=== PATIENT | female | born 1995 | race African-American/Black ===

== ENCOUNTER 2016-11-22 15:09 | Emergency (ER) | payer BC ==
[2016-11-22 15:32] VITALS: BP 112/65
--- NOTE | 2016-11-22 15:50 | UC ---
Complaint Female HPI - HPI Summary HPI Summary: Patient has been having lots of vaginal bleeding. she is followed by her TEST DRILLER and is scheduled for a D&C at the end of December. she was given iron supplements but does not take them do to her hx of hemmorroids. she states she is going through 6-7 pads a day. does admit to unprotected sex in the past month - History Of Current Complaint Chief Complaint: UCAbdominalPain Stated Complaint: VAGINAL BLEEDING AND ABDOMINAL PAIN Time Seen by Provider: 11/22/16 15:28 Hx Obtained From: Patient Hx Last Menstrual Period: bleeding for 4 months Onset/Duration: Sudden Onset, Lasting Weeks Timing: Constant Severity Initially: Moderate Severity Currently: Moderate Pain Scale Used: 0-10 Numeric Character: Cramping Aggravating Factor(s): Nothing Alleviating Factor(s): Nothing Associated Signs And Symptoms: Positive: Vaginal Bleeding/Discharge - Risk Factors Ectopic Risk Factor: Negative Ovarian Torsion Risk Factor: Negative - Allergies/Home Medications Allergies/Adverse Reactions: Allergies Allergy/AdvReac Type Severity Reaction Status Date / Time No Known Allergies Allergy Verified 11/22/16 15:32 PMH/Surg Hx/FS Hx/Imm Hx Previously Healthy: Yes Endocrine History Of: Denies: Diabetes, Thyroid Disease Cardiovascular History Of: Denies: Cardiac Disorders, Hypertension Respiratory History Of: Reports: Asthma Denies: COPD GI/ History Of: Denies: Ulcer - Surgical History Surgical History: Yes Surgery Procedure, Year, and Place: APPENDECTOMY, 10/18 - Family History Known Family History: Negative: Diabetes - Social History Alcohol Use: Occasionally Substance Use Type: None Smoking Status (MU): Never Smoked Tobacco Household Exposure Type: Cigarettes - Immunization History Most Recent Influenza Vaccination: fall 2012 Review of Systems Constitutional: Negative Skin: Negative Eyes: Negative ENT: Negative Respiratory: Negative Cardiovascular: Negative Gastrointestinal: Other - vaginal bleeding Genitourinary: Negative Motor: Negative Neurovascular: Negative Musculoskeletal: Negative Neurological: Negative Psychological: Negative All Other Systems Reviewed And Are Negative: Yes Physical Exam Triage Information Reviewed: Yes Appearance: Well-Appearing, Well-Nourished, Pain Distress Vital Signs: Initial Vital Signs Temp 98.3 F 11/22/16 15:26 Pulse 93 11/22/16 15:26 Resp 20 11/22/16 15:26 BP 112/65 11/22/16 15:26 Pulse Ox 99 11/22/16 15:26 Vital Signs Reviewed: Yes Eye Exam: Normal ENT Exam: Normal ENT: Positive: Normal ENT inspection, Pharynx normal, TMs normal Dental Exam: Normal Neck exam: Normal Respiratory Exam: Normal Respiratory: Positive: Chest non-tender, Lungs clear, Normal breath sounds Cardiovascular Exam: Normal Cardiovascular: Positive: RRR, No Murmur, Pulses Normal Abdominal Exam: Normal Abdomen Description: Positive: No Organomegaly, Soft, Other: - distended lower abdomen, mild tenderness Bowel Sounds: Positive: Present Musculoskeletal Exam: Normal Neurological Exam: Normal Psychological Exam: Normal Psychological: Positive: Normal Response To Family Skin Exam: Normal Complaint Female Dx - Course Course Of Treatment: Hx obtained, exam performed, meds reviewed, UA and test performed, everything negative. Recommend follow up with OB to set up earlier appointment for D and C. Ibuprofen prescribed. Educated patient on Iron righ foods as she is reluctant to take her iron supplemtents. - Differential Dx/Diagnosis Provider Diagnoses: vaginal bleeding. fatique. lower abdominal pain Discharge - Discharge Plan Condition: Stable Disposition: HOME Patient Education Materials: Dysfunctional Uterine Bleeding (ED) Additional Instructions: I recommend follow up with your OB to reschedule your D and C if possible or to reassess your bleeding since it is interfering with your daily life. Since you do not want to take your iron supplements. I recommend increasing your iron intake in foods. I have prescribed some higher dosed Ibuprofne for pain and cramping.
== END 2016-11-22 16:38 | disposition home or self-care (01) ==
LOC: UCEAST 15:09
DX: N93.9 Abnormal uterine and vaginal bleeding, unspecified (principal); R53.83 Other fatigue; R10.30 Lower abdominal pain, unspecified; Z32.02 Encounter for pregnancy test, result negative; Z77.22 Contact with and (suspected) exposure to environmental tobacco smoke (acute) (chronic)
CPT/HCPCS: 81003; 84702; 99212; G0463

== ENCOUNTER 2017-05-01 15:24 | Emergency (ER) | payer SELFPAY ==
[2017-05-01 15:35] VITALS: BP 122/72
--- NOTE | 2017-05-01 15:59 | UC ---
UC Dental HPI - HPI Summary HPI Summary: left posterior upper and lower dental pain with swelling worsening over 24 hours - History of Current Complaint Hx Obtained From: Patient Hx Last Menstrual Period: February 03 ?: No Onset/Duration: Sudden Onset, Lasting Days, Still Present Severity: Severe Pain Intensity: 8 Pain Scale Used: 0-10 Numeric Related History: Previous Dental Care on Same Tooth, Swelling <Shasha Magallon - Last Filed: 05/01/17 17:10> <Crissy Ball - Last Filed: 05/01/17 18:59> - History of Current Complaint Chief Complaint: UCGeneralIllness Stated Complaint: TEETH,JAW,HEAD PAIN Time Seen by Provider: 05/01/17 15:31 - Allergies/Home Medications Allergies/Adverse Reactions: Allergies Allergy/AdvReac Type Severity Reaction Status Date / Time No Known Allergies Allergy Verified 11/22/16 15:32 Home Medications: Home Medications Acetaminophen [Tylenol] 325 mg PO 05/01/17 [History] Ibuprofen TAB* [Motrin TAB* 600 MG] 800 mg PO Q6H PRN 05/01/17 [History Confirmed 05/01/17] PMH/Surg Hx/FS Hx/Imm Hx Previously Healthy: Yes - Surgical History Surgical History: Yes Surgery Procedure, Year, and Place: APPENDECTOMY, 10/18 - Family History Known Family History: Negative: Diabetes - Social History Occupation: Employed Full-time Lives: With Family Alcohol Use: Occasionally Substance Use Type: None Smoking Status (MU): Never Smoked Tobacco - Immunization History Most Recent Influenza Vaccination: fall 2012 <Shasha Magallon - Last Filed: 05/01/17 17:10> Review of Systems Constitutional: Negative Skin: Negative Eyes: Negative ENT: Negative, Dental Pain - left upper and lower molar pain with swelling Respiratory: Negative Cardiovascular: Negative Gastrointestinal: Negative Genitourinary: Negative Motor: Negative Neurovascular: Negative Musculoskeletal: Negative Neurological: Negative Psychological: Negative All Other Systems Reviewed And Are Negative: Yes <Shasha Magallon - Last Filed: 05/01/17 17:10> Physical Exam Triage Information Reviewed: Yes Appearance: Well-Appearing, No Pain Distress, Well-Nourished Vital Signs: Initial Vital Signs Temp 98.6 F 05/01/17 15:28 Pulse 65 05/01/17 15:28 Resp 14 05/01/17 15:28 BP 122/72 05/01/17 15:28 Pulse Ox 100 05/01/17 15:28 Vital Signs Reviewed: Yes Eye Exam: Normal Eyes: Positive: Conjunctiva Clear ENT Exam: Normal ENT: Positive: Normal ENT inspection, Hearing grossly normal, Pharynx normal. Negative: Nasal congestion, Nasal drainage, Trismus, Muffled/hoarse voice Dental Exam: Normal Dental: Positive: Percussion Tenderness @ - molar left upper and lower jaw, Abscess @. Negative: Gross Decay/Caries @, Dental Fracture @ Neck exam: Normal Neck: Positive: Supple, Nontender, No Lymphadenopathy Respiratory Exam: Normal Respiratory: Positive: Chest non-tender, No respiratory distress, No accessory muscle use Cardiovascular Exam: Normal Cardiovascular: Positive: RRR, Pulses Normal, Brisk Capillary Refill Musculoskeletal Exam: Normal Musculoskeletal: Positive: Strength Intact, ROM Intact, No Edema Neurological Exam: Normal Neurological: Positive: Alert, Muscle Tone Normal Psychological Exam: Normal Psychological: Positive: Normal Response To Family Skin Exam: Normal <Shasha Magallon - Last Filed: 05/01/17 17:10> Vital Signs: Initial Vital Signs Temp 98.6 F 05/01/17 15:28 Pulse 65 05/01/17 15:28 Resp 14 05/01/17 15:28 BP 122/72 05/01/17 15:28 Pulse Ox 100 05/01/17 15:28 <Crissy Ball - Last Filed: 05/01/17 18:59> Dental Complaint Course/Dx - Course Course Of Treatment: amoxicillin, pain med, follow with dentist shahrzad - Differential Dx/Diagnosis Differential Diagnosis/Dx: Dental Abscess, Dental Caries, Peritonsillar Abcess Provider Diagnoses: Dental abscess with pain <Shasha Magallon - Last Filed: 05/01/17 17:10> Discharge <Shasha Magallon - Last Filed: 05/01/17 17:10> <Crissy Ball - Last Filed: 05/01/17 18:59> - Discharge Plan Condition: Stable Disposition: HOME Prescriptions: Amoxicillin PO (*) [Amoxicillin 500 MG CAP*] 500 mg PO TID #30 cap Hydrocodone-Acetaminophen [Hydrocodone/Acetaminophen 5-325 mg] 1 tab PO Q6H #10 tab MDD 4 Patient Education Materials: Dental Abscess (ED), Toothache (ED) Forms: *Work Release Referrals: Archana Varma MD [Primary Care Provider] - 3 Days Attestation Statement User Type: Provider - I was available for consult. This patient was seen by the K[facility]. The patient was not presented to, seen by, or examined by me. -Silvio <Crissy Ball - Last Filed: 05/01/17 18:59>
[2017-05-01] MEDS ORDERED: Ketorolac INJ* 60 MG/2 ML VIAL IM ONE (16:12)
== END 2017-05-01 16:35 | disposition home or self-care (01) ==
LOC: UCEAST 15:24
DX: K04.7 Periapical abscess without sinus (principal); K08.89 Other specified disorders of teeth and supporting structures
CPT/HCPCS: 84702; 96372; 99211; G0463; J1885

== ENCOUNTER 2017-09-23 03:02 | Emergency (ER) | payer BC ==
[2017-09-23] MEDS ORDERED: Ketorolac INJ* 60 MG/2 ML VIAL IM ONE (03:19)
[2017-09-23] MEDS ORDERED: oxyCODONE/Acetamin 5/325 MG* TAB PO ONE (03:19)
--- NOTE | 2017-09-23 04:06 | ED ---
Jimbo Aranda Stephanie, scribed for Calvin Corona MD on 09/23/17 at 0332 . Complex/Multi-Sys Presentation - HPI Summary HPI Summary: The pt is a 22 y/o F presenting to the ED with dental pain that began 1 week ago. The pain is located on the left bottom molar. The pt denies fever. She was prescribed abx at [facility] and was instructed to take 800 mg tablets of ibuprofen. - History Of Current Complaint Chief Complaint: EDDentalPain Time Seen by Provider: 09/23/17 03:08 Hx Obtained From: Patient Onset/Duration: Lasting Weeks - 1, Still Present Timing: Constant Location: Pain At: - left lower molar - Allergies/Home Medications Allergies/Adverse Reactions: Allergies Allergy/AdvReac Type Severity Reaction Status Date / Time No Known Allergies Allergy Verified 07/09/17 13:22 PMH/Surg Hx/FS Hx/Imm Hx Endocrine/Hematology History: Denies: Hx Diabetes, Hx Thyroid Disease Cardiovascular History: Denies: Hx Hypertension Respiratory History: Reports: Hx Asthma Denies: Hx Chronic Obstructive Pulmonary Disease (COPD) GI History: Denies: Hx Ulcer - Surgical History Surgery Procedure, Year, and Place: APPENDECTOMY, 10/18 - Immunization History Date of Tetanus Vaccine: up to date per pt Infectious Disease History: No Infectious Disease History: Denies: Hx Hepatitis, Hx Human Immunodeficiency Virus (HIV), History Other Infectious Disease, Traveled Outside the [place] in Last 30 Days - Family History Known Family History: Negative: Diabetes - Social History Occupation: Employed Part-time Lives: With Family Alcohol Use: Occasionally Substance Use Type: Reports: None Smoking Status (MU): Never Smoked Tobacco Review of Systems Negative: Fever Positive: Dental Pain All Other Systems Reviewed And Are Negative: Yes Physical Exam - Summary Physical Exam Summary: VITAL SIGNS: Reviewed. GENERAL: Patient is a well-developed and nourished FEMALE who is lying comfortable in the stretcher. Patient is not in any acute respiratory distress. HEAD AND FACE: No signs of trauma. No ecchymosis, hematomas or skull depressions. No sinus tenderness. EYES: PERRLA, EOMI x 2, No injected conjunctiva, no nystagmus. EARS: Hearing grossly intact. Ear canals and tympanic membranes are within normal limits. MOUTH: Oropharynx within normal limits. Tenderness over last molar on L lower side of mouth. No sign of gingivitis NECK: Supple, trachea is midline, no adenopathy, no JVD, no carotid bruit, no c- spine tenderness, neck with full ROM. CHEST: Symmetric, no tenderness at palpation LUNGS: Clear to auscultation bilaterally. No wheezing or crackles. CVS: Regular rate and rhythm, S1 and S2 present, no murmurs or gallops appreciated. ABDOMEN: Soft, non-tender. No signs of distention. No rebound no guarding, and no masses palpated. Bowel sounds are normal. EXTREMITIES: FROM in all major joints, no edema, no cyanosis or clubbing. NEURO: Alert and oriented x 3. No acute neurological deficits. Speech is normal and follows commands. SKIN: Dry and warm Triage Information Reviewed: Yes Vital Signs On Initial Exam: Initial Vitals Temp Pulse Resp BP Pulse Ox 98 F 87 14 143/96 97 09/23/17 03:04 09/23/17 03:04 09/23/17 03:04 09/23/17 03:04 09/23/17 03:04 Vital Signs Reviewed: Yes Diagnostics - Vital Signs Vital Signs Temp Pulse Resp BP Pulse Ox 09/23/17 03:04 98 F 87 14 143/96 97 - Laboratory Lab Statement: Any lab studies that have been ordered have been reviewed, and results considered in the medical decision making process. Complex Multi-Symp Course/Dx Course Of Treatment: ED physician prescribed Percocet for pain. Pt will be discharged home. Pt is advised to follow up with dentist. - Diagnoses Provider Diagnoses: Tooth ache Discharge - Discharge Plan Condition: Stable Disposition: HOME Prescriptions: oxyCODONE/Acetamin 5/325 MG* [Percocet 5/325 TAB*] 1 tab PO Q6H PRN #14 tab MDD 4 PRN Reason: Pain Patient Education Materials: Toothache (ED) Referrals: Archana Varma MD [Primary Care Provider] - Additional Instructions: RETURN TO EMERGENCY DEPARTMENT FOR ANY NEW OR WORSENING SYMPTOMS The documentation as recorded by the Jimbo ford Stephanie accurately reflects the service I personally performed and the decisions made by , Calvin Corona MD.
[2017-09-23 04:18] VITALS: BP 136/82
== END 2017-09-23 04:17 | disposition home or self-care (01) ==
LOC: ED 03:02
DX: K08.89 Other specified disorders of teeth and supporting structures (principal); Z87.09 Personal history of other diseases of the respiratory system
CPT/HCPCS: 96372; 99282; A9270-GY; J1885

== ENCOUNTER 2018-07-27 20:09 | Emergency (ER) | payer BC ==
[2018-07-27 20:19] VITALS: BP 131/102
[2018-07-27] MEDS ORDERED: Ondansetron ODT TAB* 4 MG PO ONE ×2 (20:21→22:22)
[2018-07-27] MEDS ORDERED: Ondansetron ODT TAB* 4 MG ONE (20:22)
--- NOTE | 2018-07-27 20:26 | UC ---
Nausea/Vomiting/Diarrhea HPI - HPI Summary HPI Summary: 23 year old woman comes to clinic today with a chief complaint of nausea vomiting. This started last night after drinking alcohol. Initially is no pain. Now there is pain in the upper abdomen with vomiting. The pain subsides when she is not vomiting. Stools were loose. No diarrhea. She's had her appendix out in the past. No fevers. - History of Current Complaint Chief Complaint: UCGI Stated Complaint: VOMITING Time Seen by Provider: 07/27/18 20:14 Hx Last Menstrual Period: [id number] Pain Intensity: 8 - Allergies/Home Medications Allergies/Adverse Reactions: Allergies Allergy/AdvReac Type Severity Reaction Status Date / Time No Known Allergies Allergy Verified 07/27/18 20:19 PMH/Surg Hx/FS Hx/Imm Hx Previously Healthy: Yes - Surgical History Surgical History: Yes Surgery Procedure, Year, and Place: APPENDECTOMY, 10/18 - Family History Known Family History: Negative: Diabetes - Social History Alcohol Use: Occasionally Substance Use Type: None Smoking Status (MU): Never Smoked Tobacco Household Exposure Type: Cigarettes - Immunization History Most Recent Influenza Vaccination: fall 2012 Review of Systems All Other Systems Reviewed And Are Negative: Yes Constitutional: Positive: Negative Skin: Positive: Negative Eyes: Positive: Negative ENT: Positive: Negative Respiratory: Positive: Negative Cardiovascular: Positive: Negative Gastrointestinal: Positive: Abdominal Pain, Vomiting, Nausea Genitourinary: Positive: Negative Motor: Positive: Negative Neurovascular: Positive: Negative Musculoskeletal: Positive: Negative Neurological: Positive: Negative Psychological: Positive: Negative Is Patient Immunocompromised?: No Physical Exam Triage Information Reviewed: Yes Appearance: No Pain Distress, Well-Nourished, Ill-Appearing - mild. Initially actively vomiting in clinic Vital Signs: Initial Vital Signs Temp 97.8 F 07/27/18 20:13 Pulse 89 07/27/18 20:13 Resp 16 07/27/18 20:13 BP 131/102 07/27/18 20:13 Pulse Ox 100 07/27/18 20:13 Vital Signs Reviewed: Yes Eye Exam: Normal Eyes: Positive: Conjunctiva Clear ENT: Positive: Pharynx normal Neck exam: Normal Neck: Positive: Supple Respiratory: Positive: No respiratory distress Cardiovascular: Positive: RRR Abdomen Description: Positive: Nontender, Soft. Negative: Guarding Bowel Sounds: Positive: Present Musculoskeletal Exam: Normal Musculoskeletal: Positive: Strength Intact, ROM Intact Neurological Exam: Normal Neurological: Positive: Alert, Muscle Tone Normal Psychological Exam: Normal Psychological: Positive: Age Appropriate Behavior Skin Exam: Normal Naus/Vom/Diarrhea Course/Dx - Course Course Of Treatment: In the clinic the patient received Zofran 4 mg ODT. She did improve however after trying to eat she did vomit. The plan at this time is to send her home with some more Zofran so that she can rest and advance her diet slowly. If she gets more pain or feels worse she should go to the emergency department. - Differential Dx/Diagnosis Provider Diagnoses: DEHYDRATION. NAUSEA AND VOMITING. ABDOMINAL PAIN Condition At Discharge: Stable Discharge - Sign-Out/Discharge Documenting (check all that apply): Patient Departure All imaging exams completed and their final reports reviewed: No Studies - Discharge Plan Condition: Stable Disposition: HOME Prescriptions: Ondansetron ODT TAB* [Zofran 4 MG Odt TAB*] 4 mg PO Q6H PRN #10 tab.odt PRN Reason: Nausea Patient Education Materials: Dehydration (ED), Acute Nausea and Vomiting (ED), Acute Abdominal Pain (ED) Referrals: Pasha Yu MD [Primary Care Provider] - Additional Instructions: FOLLOW UP WITH YOUR DOCTOR IF NOT COMPLETELY IMPROVED. GET RECHECKED FOR ANY WORSENING OF YOUR CONDITION; PAIN, FEVER, DEHYDRATION OR QUESTIONS OR CONCERNS. - Billing Disposition and Condition Condition: STABLE Disposition: Home
== END 2018-07-27 22:50 | disposition home or self-care (01) ==
LOC: UCEAST 20:09
DX: R11.2 Nausea with vomiting, unspecified (principal); E86.0 Dehydration; R10.10 Upper abdominal pain, unspecified; F10.20 Alcohol dependence, uncomplicated; Z90.89 Acquired absence of other organs
CPT/HCPCS: 99212; A9270-GY; G0463

== ENCOUNTER → 2019-06-10 | Day surgery (SDC) | payer BC ==
[~2019-06-10] MED LIST: Buffered Lidocaine 1% SYRIN* 1 ML/SYRINGE INTRADERM ONE; Bupivacaine 0.25% SDV PF* 10 ML VIAL INJ ONE; Dexamethasone IV* 4 MG/ML 1 ML (4 MG) IV SLOW PU ONE; Dexamethasone IV* 4 MG/ML 1 ML (4 MG) ONE; DiMENhydriNATE IV* 50 MG/ML VIAL IV PUSH PRN; DiMENhydriNATE IV* 50 MG/ML VIAL ONE; Famotidine IV* 10 MG/ML 2 ML (20 mg) IV ONE; Famotidine IV* 10 MG/ML 2 ML (20 mg) ONE; Glycopyrrolate IV* 0.2 MG/ML 1 ML VIAL ONE; HYDROcodone/ACETAMIN 5-325 MG* 1 TAB ONE; Ketorolac INJ* 30 MG/ML 1 ML VIAL ONE; Lactated Ringers 1000 ML Bag* 1,000 ML IV SCH; Levalbuterol 0.63MG/3ML NEB* UNIT OF USE INH ONE; Lidocaine 2% PF * 5 ML VIAL ONE; Midazolam* 1 MG/ML 5 ML VIAL (5 MG) ONE; Naloxone* 0.4 MG/ML 1 ML VIAL IV PRN; Ondansetron INJ* 2 MG/ML VIAL IV PRN; Ondansetron INJ* 2 MG/ML VIAL ONE; Propofol* 10 MG/ML 20 ML BTL ONE; ceFAZolin 2 GM in NS PREMIX(*) 2 GM/100 ML BAG IVPB ONE; fentaNYL* 50 MCG/ML 2 ML VIAL (100 MCG VIAL) ONE; fentaNYL* 50 MCG/ML 5 ML VIAL (250 MCG VIAL) ONE; oxyCODONE/Acetamin 5/325 MG* TAB PO PRN
[2019-06-10] MEDS: fentaNYL* 50 MCG/ML 2 ML VIAL (100 MCG VIAL) IV PRN ×2 (16:35→16:59)
[2019-06-10 19:19] VITALS: BP 118/78
--- NOTE | 2019-06-13 21:22 | OP ---
DATE OF OPERATION: 06/10/19 - [facility] DATE OF : 89 SURGEON: Rio Snyder MD PEELED POTATO INSPECTOR: ELIAS Bañuelos. An primary teaching assistant was needed for the entirety of the procedure to aid in positioning of the arm and retraction. ANESTHESIOLOGIST: Dr. Katz. ANESTHESIA: General. PRE-OP DIAGNOSES: 1. Right wrist dorsal synovitis. 2. Right dorsal wrist ganglion cyst. 3. Right thumb metacarpophalangeal joint radial collateral ligament tear. POST-OP DIAGNOSES: 1. Right wrist dorsal synovitis. 2. Right peripheral triangular fibrocartilage complex tear. 3. Right dorsal wrist ganglion cyst. 4. Right thumb metacarpophalangeal joint radial collateral ligament tear. OPERATIVE PROCEDURE: 1. Diagnostic right wrist arthroscopy with TFCC tear debridement and dorsal synovectomy. 2. Right open peripheral TFCC repair. 3. Right dorsal wrist ganglion cyst excision. 4. Right thumb metacarpophalangeal joint radial collateral ligament repair. INDICATIONS: Sofie is 24 years old. She has dorsal wrist pain. 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 We had talked about her treatment options. She wanted to proceed with surgery. MRI had shown a dorsal wrist ganglion cyst and so I thought we would take that out as well and, in addition, I would do an arthroscopic dorsal debridement to see if we could help with some of the dorsal wrist pain that she gets when she extends the wrist. She understands and wishes to proceed. ESTIMATED BLOOD LOSS: 2 mL. COMPLICATIONS: None. FINDINGS: See above and below. DESCRIPTION OF PROCEDURE: Ms. Jiang was seen in the preoperative holding area. The correct site, side, and procedures were identified. We came back to the operating room where the arm was prepped and draped in the usual fashion and a time- out was performed. The arm was exsanguinated with the Esmarch and the tourniquet was inflated. Her arm was placed in the Acumed traction tower and appropriate in-line traction was placed. I developed a 3-4 and 6R portal in standard fashion utilizing the 11-blade followed by mosquito and then the camera was introduced into the 3-4 portal. I then used an 18-gauge needle to out my 6R portal and that was developed and the instruments were introduced through the 6R portal. Immediately noted was quite a bit of dorsal soft tissue and synovitis. The shaver was used to excise all of that. Once I excised all that, I had a good view of the ulnar-sided structures. She had a peripheral and dorsal tear of the TFCC, looked like it had torn right off the capsule. I went ahead and used the shaver to debride the edges of that. It did look repairable. Other than that, the membranous portion of the scapholunate ligament looked good. There was no step-off between the scaphoid and the lunate. Everything else was looking pretty good and so we went ahead and withdrew the arthroscopic equipment and turned our attention to the next portion of the procedure. The arm was let out of the traction tower. I then incorporated our 6R portal site into a curvilinear incision over the ulnar side of the dorsal wrist joint. Dissection was carried down. Full-thickness flaps were raised off the extensor retinaculum. I came just radial to the ECU tendon sheath and I opened up the joint there, took care to preserve the dorsal radioulnar ligament. Once I had elevated the capsule and I had a good look at the TFCC, I was able to see that peripheral tear. It had torn off the ECU subsheath. We did take some 3-0 FiberWire suture and I was able to place 2 [id number] sutures from the subsheath into the TFCC and that closed down the tear very nicely. The foveal attachment looked intact. After the TFCC was repaired, I went ahead and sewed the capsule back into its anatomic location with 3-0 Ethibond sutures sewing the dorsal capsule to the dorsal TFCC. I closed the extensor retinaculum with 4-0 PDS suture. Skin was then closed with 4-0 Monocryl. I then incorporated the 3-4 portal in a transverse 2-cm incision. Dissection was carried down. The dorsal wrist ganglion emanating off the dorsal aspect of the scapholunate interosseous ligament was identified. It was taken right off the capsule. I then used the Bovie to cauterize the area where it had emanated from the capsule. Great care was taken to protect the fourth and third dorsal compartment tendons during the cyst excision. After that was done, I irrigated out the wound and the skin was also closed with 4-0 Monocryl suture. I then turned my attention to the metacarpophalangeal joint. I made an incision over the radial aspect of the joint. I utilized the interval between the lateral band and the EPL tendon and I was able to gain access to the radial side of the MCP joint. The tear was immediately apparent. It had torn off the origin and the ligament had assumed a much more horizontal position scarring down to the volar aspect of the metacarpal head, but there was really no ligament that had attached up in its grand traverse footprint. I used the [place] blade to release the collateral ligament and released it off the volar tissues where it had scarred down. It actually had preserved reasonable length. I was able to then rotate it back into its more grand traverse position and I thought I had adequate soft tissue and so I went ahead and placed 2 Arthrex micro suture anchors in the footprint of the radial collateral ligament. I then used the FiberWire suture coming off those suture anchors to sew down the ligament right onto the bone and over the anchor. This was done initially with a simple mattress-type suture followed by a whipstitch down the ligament and it was tied off again. This provided excellent ligament to bone apposition. I had prepared the bone with a curette and rongeur, so that would bleed a little bit in preparation for ligament healing. After I had repaired that ligament, I had excellent stability at both 0 and 30 degrees with respect to the radial collateral ligament. With the ligament repaired, I closed my tendon split with a 4-0 PDS suture. Skin was closed with 4-0 nylon. 0.25% Marcaine was infiltrated about all the operative areas. The wounds were dressed and a long-arm splint with a thumb spica extension down to the tip of the thumb was applied protecting that radial collateral ligament. She was then taken to the recovery room in stable condition. [id number]/[facility] #: [id number] ROSEMARY
== END | disposition home or self-care (01) ==
LOC: OR 12:01
PROVIDERS: ATTEND Orthopaedic Surgery Hand Surgery
DX: S63.591D Other specified sprain of right wrist, subsequent encounter (principal); S63.521D Sprain of radiocarpal joint of right wrist, subsequent encounter; M67.431 Ganglion, right wrist; M65.831 Other synovitis and tenosynovitis, right forearm; X58.XXXD Exposure to other specified factors, subsequent encounter; Y92.9 Unspecified place or not applicable; J45.909 Unspecified asthma, uncomplicated
CPT/HCPCS: 81025; 88304; C1713; J0690; J1100; J1240; J1885; J2250; J2405; J2704; J3010; J3490

== ENCOUNTER 2019-09-06 11:54 | Inpatient (IN) | payer BC ==
--- OUTSIDE RECORDS SUMMARY | 2019-09-06 12:18 | XMS REPORT | Continuity of Care Document ---
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 Active Problems Provider Date Late effect of sprain AND/OR strain without Rio Snyder MD Onset: 2018 tendon injury Social History Type Date Description Comments Sex Unknown ETOH Use Rarely consumes alcohol Tobacco Use Start: Unknown Patient has never smoked Smoking Status Reviewed: 07/23/19 Patient has never smoked Exercise Type/Frequency Exercises sporadically Allergies, Adverse Reactions, Alerts Description No Known Drug Allergies Medications Active Medications SIG Qnty Indications Ordering Provider Date Fluoxetine HCL 1 by mouth every Unknown 40mg day Capsules History Medications Hydrocodone-Acetaminophen 1 or 2 tabs 30tabs Rio 06/10/2019 - 5-325mg Tablets by mouth MD Claudio 07/22/2019 every 6-8 hours as needed for pain No Active Medications Unknown 03/12/2019 - 06/04/2019 Immunizations Description No Information Available Vital Signs Date Vital Result Comment 07/23/2019 2:06pm Height 64 inches 5'4" Weight 150.00 lb Heart Rate 72 /min BP Systolic Sitting 122 mmHg BP Diastolic Sitting 76 mmHg Respiratory Rate 14 /min Pain Level 0 O2 % BldC Oximetry 98 % BMI (Body Mass Index) 25.7 kg/m2 07/02/2019 2:25pm Height 64 inches 5'4" Weight 153.00 lb Heart Rate 76 /min Respiratory Rate 14 /min Body Temperature 97.1 F Pain Level 0 BMI (Body Mass Index) 26.3 kg/m2 Results Test Acquired Date Facility Test Result H/L Range Note Laboratory test 06/10/2019 [facility] Surgical SEE RESULT [address] Pathology BELOW [place], [place] [id number] [phone] 1 SEE RESULT BELOW Name: MAMIE FARIAS : [address]: Rio Snyder MD Acct: [id number] Unit: [id number] AGE: 24 Location: OR Re06/10/19 SEX: F Status: REG SDC SPEC: [id number] OBEY: 06/10/19- SUBM DR: Rio Snyder MD REQ: [id number] RECD: 06/10/19 STATUS: SOUT _ ORDERED: LEVEL 3 FINAL DIAGNOSIS Soft tissue, right dorsal wrist, excision: -- Ganglion cyst. PRE-OPERATIVE DIAGNOSIS Sprain of metacarpophalangeal joint of right thumb GROSS DESCRIPTION The specimen is received in formalin labeled, Right Dorsal Wrist Ganglion, and consists of two piper-white irregular rubbery fibrous tissue fragments aggregating 0.9 x 0.7 x 0.3 cm which are submitted entirely in one cassette. Signed by and Reported on: Vidal Caal MD 05/23 1216 END OF REPORT DEPARTMENT OF PATHOLOGY, [address] [place] [address] Vidal Caal M.D. Director [facility] # [id number] Procedures Date Code Description Status 07/23/2019 51729 Long Arm Splint Application Completed 06/12/2019 49913 Long Arm Cast Application Completed 06/10/2019 83919 Repair Of Collateral Ligament Metacarpophalangeal Or Completed Interphl JT 06/10/2019 20009 Excision Ganglion Wrist/ Dorsal Or Volar; Primary Completed 06/10/2019 71221 Arthrotomy Distal Radioulnar JT W/Repair Triangular Completed Cartilage 06/10/2019 41220 Arthrotomy Distal Radioulnar JT W/Repair Triangular Completed Cartilage Medical Devices Description No Information Available Encounters Type Date Location Provider Dx Diagnosis Office Visit 03/27/2019 Krystle Pate S63.641D Sprain of 11:00a Orthopedics at [facility] metacarpophalangeal [place] joint of right thumb, subs M67.431 Ganglion, right wrist S63.591D Other specified sprain of right wrist, subsequent encounter Office Visit 03/12/2019 1:00p [facility] Rio S63.591S Other specified at Madhav Snyder MD sprain of right wrist, sequela S63.641S Sprain of metacarpophalangeal joint of right thumb, sequela M24.241 Disorder of ligament, right hand M25.531 Pain in right wrist Assessments Date Code Description Provider 07/23/2019 S63.641D Sprain of metacarpophalangeal joint of right Rio Snyder MD thumb, subsequent encounter 07/23/2019 M67.431 Ganglion, right wrist Rio Snyder MD 07/23/2019 S63.591D Other specified sprain of right wrist, Rio Snyder MD subsequent encounter 07/02/2019 S63.641D Sprain of metacarpophalangeal joint of right Rio Snyder MD thumb, subsequent encounter 07/02/2019 M67.431 Ganglion, right wrist Rio Snyder MD 07/02/2019 S63.591D Other specified sprain of right wrist, Rio Snyder MD subsequent encounter 06/19/2019 S63.641D Sprain of metacarpophalangeal joint of right Rio Snyder MD thumb, subsequent encounter 06/19/2019 M67.431 Ganglion, right wrist Rio Snyder MD 06/19/2019 S63.591D Other specified sprain of right wrist, Rio Snyder MD subsequent encounter 06/12/2019 S63.641D Sprain of metacarpophalangeal joint of right Rio Snyder MD thumb, subsequent encounter 06/12/2019 M67.431 Ganglion, right wrist Rio Snyder MD 06/12/2019 S63.591D Other specified sprain of right wrist, Rio Snyder MD subsequent encounter 06/10/2019 S63.641A Sprain of metacarpophalangeal joint of right Rio Snyder MD thumb, initial encounter 06/10/2019 S63.641D Sprain of metacarpophalangeal joint of right ELIAS Bañuelos thumb, subsequent encounter 06/10/2019 M67.431 Ganglion, right wrist ELIAS Bañuelos 06/10/2019 S63.591A Other specified sprain of right wrist, initial Brad Bedolla PA encounter 06/10/2019 M67.431 Ganglion, right wrist Rio Snyder MD 06/10/2019 S63.591A Other specified sprain of right wrist, initial Rio Snyder MD encounter 06/04/2019 S63.641D Sprain of metacarpophalangeal joint of right Rio Snyder MD thumb, subsequent encounter 06/04/2019 M67.431 Ganglion, right wrist Rio Snyder MD 06/04/2019 S63.591D Other specified sprain of right wrist, Rio Snyder MD subsequent encounter 03/27/2019 S63.641D Sprain of metacarpophalangeal joint of right Rio Snyder MD thumb, subsequent encounter 03/27/2019 M67.431 Ganglion, right wrist Rio Snyder MD 03/27/2019 S63.591D Other specified sprain of right wrist, Rio Snyder MD subsequent encounter 03/12/2019 S63.591S Other specified sprain of right wrist, sequela Rio Snyder MD 03/12/2019 S63.641S Sprain of metacarpophalangeal joint of right Rio Snyder MD thumb, sequela 03/12/2019 M24.241 Disorder of ligament, right hand Rio Snyder MD 03/12/2019 M25.531 Pain in right wrist Rio Snyder MD Plan of Treatment Future Appointment(s):08/14/2019 10:15 am - Rio nSyder MD at [facility] at Zvxjly0607/23/2019 - Rio Snyder MDS63.641D Sprain of metacarpophalangeal joint of right thumb, subsequent encounterNew Therapy: Physical TherapyFollow up:Follow up: 4 [id number] Ganglion, right eekhyS30.591D Other specified sprain of right wrist, subsequent encounter Functional Status Description No Information Available Mental Status Description No Information Available Referrals Description No Information Available
--- OUTSIDE RECORDS SUMMARY | 2019-09-06 12:18 | XMS REPORT | Continuity of Care Document ---
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 Active Problems Provider Date Late effect of sprain AND/OR strain without Rio Snyder MD Onset: 2018 tendon injury Social History Type Date Description Comments Sex Unknown ETOH Use Rarely consumes alcohol Tobacco Use Start: Unknown Patient has never smoked Smoking Status Reviewed: 08/14/19 Patient has never smoked Exercise Type/Frequency Exercises [...] Available Vital Signs Date Vital Result Comment 08/14/2019 11:17am Height 66 inches 5'6" Weight 150.50 lb Heart Rate 66 /min BP Systolic 126 mmHg BP Diastolic 78 mmHg Respiratory Rate 14 /min Body Temperature 98.1 F Pain Level 0 BMI (Body Mass Index) 24.3 kg/m2 07/23/2019 2:06pm Height 64 inches 5'4" Weight 150.00 lb Heart Rate 72 /min BP Systolic Sitting 122 mmHg BP Diastolic Sitting 76 mmHg Respiratory Rate 14 /min Pain Level 0 O2 % BldC Oximetry 98 % BMI (Body Mass Index) 25.7 kg/m2 Results Test Acquired Date Facility Test Result H/L Range Note Laboratory test 06/10/2019 [facility] Surgical SEE RESULT [address] Pathology BELOW [place], [place] [address] [phone] SEE RESULT BELOW Name: MAMIE FARIAS : [address]: Rio Snyder MD Acct: [id number] Unit: [id number] AGE: 24 Location: OR Re06/10/19 SEX: F Status: REG [facility] SPEC: [id number] OBEY: 06/10/19- SUBM DR: Rio Snyder MD REQ: [id number] RECD: 06/10/19 STATUS: SOUT _ ORDERED: LEVEL [...] 1216 END OF REPORT DEPARTMENT OF PATHOLOGY, [address] [place] [address] Vidal Caal M.D. Director [facility] # [id number] Procedures Date Code Description Status 07/23/2019 15890 Long Arm Splint Application Completed 07/02/2019 17032 Long Arm Cast Application Completed 06/12/2019 43325 Long Arm Cast Application Completed 06/10/2019 26018 Repair Of Collateral Ligament Metacarpophalangeal Or Completed Interphl JT 06/10/2019 95623 Excision Ganglion Wrist/ Dorsal Or Volar; Primary Completed 06/10/2019 22794 Arthrotomy Distal Radioulnar JT W/Repair Triangular Completed Cartilage 06/10/2019 63703 Arthrotomy Distal Radioulnar JT W/Repair Triangular Completed Cartilage Medical Devices Description No Information Available Encounters Type Date Location Provider Dx Diagnosis Office Visit 03/27/2019 Krystle Pate S63.641D Sprain of 11:00a Orthopedics at [facility] metacarpophalangeal [place] joint of right thumb, subs M67.431 Ganglion, right wrist S63.591D Other specified sprain of right wrist, subsequent encounter Office Visit 03/12/2019 1:00p [facility] Rio S63.591S Other specified at Madhav Snyder MD sprain of right wrist, sequela S63.641S Sprain of metacarpophalangeal joint of right thumb, sequela M24.241 Disorder of ligament, right hand M25.531 Pain in right wrist Assessments Date Code Description Provider 08/14/2019 S63.641D Sprain of metacarpophalangeal joint of right Rio Snyder MD thumb, subsequent encounter 08/14/2019 M67.431 Ganglion, right wrist Rio Snyder MD 08/14/2019 S63.591D Other specified sprain of right wrist, Rio Snyder MD subsequent encounter 07/23/2019 S63.641D Sprain of metacarpophalangeal joint of [...] Other specified sprain of right wrist, initial ELIAS Bañuelos encounter 06/10/2019 M67.431 Ganglion, right wrist Rio [...] Rio Snyder MD Plan of Treatment Future Appointment(s):09/17/2019 1:00 pm - Rio Snyder MD at [facility] at Kwjflh0008/14/2019 - TRISHA Rowe63.641D Sprain of metacarpophalangeal joint of right thumb, subsequent encounterFollow up:Follow up: 4 [id number] Ganglion, right egniyQ36.591D Other specified sprain of right wrist, subsequent encounter Functional Status Description No Information Available Mental Status Description No Information Available Referrals Description No Information Available
--- NOTE | 2019-09-06 12:44 | ED ---
Abdominal Pain/Female - HPI Summary HPI Summary: Patient is a 24 y/o F presenting to the ED for a chief complaint of right suprapubic abdominal pain. Patient describes her abdominal pain as a cramping sensation. She rates her abdominal pain as a 7/10 in severity. She also notes fever, chills, nausea, vomiting, fatigue, cough, and generalized body aches. Patient denies vaginal bleeding, vaginal discharge, or diarrhea. She denies any aggravating or alleviating factors. Patient was seen on 09/03/19 and had an ultrasound performed that showed a possible in her uterus. Patient was later seen by Dr. Eaton and sent to [facility] to rule out an ectopic . This would be her 4th confirmed . She has a daughter that was born at 26 weeks. She also notes having one and several miscarriages, but she is unsure how many miscarriages she has had. She denies having an IUD placed. PSHx is significant for appendectomy. - History of Current Complaint Chief Complaint: EDOBProblems Stated Complaint: POSS EPTOPIC PREG PER PT Time Seen by Provider: 09/06/19 12:21 Hx Obtained From: Patient Hx Last Menstrual Period: [id number] Onset/Duration: Sudden Onset, Still Present Timing: Constant Severity Initially: Severe Severity Currently: Severe Pain Intensity: 7 Pain Scale Used: 0-10 Numeric Location: Suprapubic - Right Radiates: No Aggravating Factor(s): Nothing Alleviating Factor(s): Nothing Associated Signs and Symptoms: Positive: Fever, Cough, Nausea, Vomiting. Negative: Vaginal Bleeding, Vaginal Discharge, Diarrhea Allergies/Adverse Reactions: Allergies Allergy/AdvReac Type Severity Reaction Status Date / Time No Known Allergies Allergy Verified 09/06/19 12:12 Home Medications: Home Medications Cholecalciferol (Vitamin D3) [D 400] 400 unit PO DAILY 09/06/19 [History Confirmed 09/06/19] PMH/Surg Hx/FS Hx/Imm Hx Previously Healthy: Yes Endocrine/Hematology History: Denies: Hx Diabetes, Hx Thyroid Disease Cardiovascular History: Denies: Hx Hypertension, Hx Pacemaker/ICD Respiratory History: Reports: Hx Asthma - RESCUE INHLAER Denies: Hx Chronic Obstructive Pulmonary Disease (COPD) GI History: Denies: Hx Ulcer History: Denies: Hx Dialysis, Hx Renal Disease Musculoskeletal History: Reports: Other Musculoskeletal History - RIGHT THUMB AMD WRIST Sensory History: Reports: Hx Contacts or Glasses - GLASSES Denies: Hx Legally Blind, Hx Deafness, Hx Hearing Aid Opthamlomology History: Reports: Hx Contacts or Glasses - GLASSES Denies: Hx Legally Blind EENT History: Denies: Hx Deafness Neurological History: Denies: Other Neuro Impairments/Disorders Psychiatric History: Reports: Hx Depression Denies: Hx Panic Disorder - Surgical History Surgical History: Yes Surgery Procedure, Year, and Place: APPENDECTOMY, 10/18 Hx Anesthesia Reactions: Yes - AFTER APPY WOKE UP AND COULDN'T BREATHE - Immunization History Date of Tetanus Vaccine: up to date per pt Infectious Disease History: No Infectious Disease History: Denies: Hx Hepatitis, Hx Human Immunodeficiency Virus (HIV), History Other Infectious Disease, Traveled Outside the [place] in Last 30 Days - Family History Known Family History: Negative: Diabetes - Social History Occupation: Employed Full-time Lives: With Family Alcohol Use: Occasionally Hx Substance Use: No Substance Use Type: Reports: None Hx Tobacco Use: No Smoking Status (MU): Never Smoked Tobacco Have You Smoked in the Last Year: No Review of Systems Positive: Fever - In vitals, 100.1 F, Chills, Fatigue Positive: Cough Positive: Abdominal Pain - Right suprapubic, Vomiting, Nausea. Negative: Diarrhea Negative: discharge - Vaginal, other - Negative vaginal bleeding Positive: Myalgia - Generalized body aches All Other Systems Reviewed And Are Negative: Yes Physical Exam - Summary Physical Exam Summary: Constitutional: Well-developed, Well-nourished, Alert. (-) Distressed Skin: Warm, Dry HENT: Normocephalic; Atraumatic Eyes: Conjunctiva normal Neck: Musculoskeletal ROM normal neck. (-) JVD, (-) Stridor, (-) Nuchal rigidity Cardio: Rhythm regular, rate normal, Heart sounds normal; Intact distal pulses; Radial pulses are 2+ and symmetric. (-) Murmur Pulmonary/Chest wall: Effort normal. (-) Respiratory distress, (-) Wheezes, (-) Rales Abd: Soft, (-) Distension, (-) Guarding, (-) Rebound. Right lower quadrant tenderness. Musculoskeletal: (-) Edema Lymph: (-) Cervical adenopathy Neuro: Alert, Oriented x3 Psych: Mood and affect Normal : Teena, a female nurse environmental research scientist, is present for the exam. External Exam: normal labia, no masses, lacerations or abnormal lesions visualized Speculum Exam: Cervical os open, scant brown discharge, no blood in vault Bimanual Exam: no CMT, mild R adnexal tenderness Triage Information Reviewed: Yes Vital Signs On Initial Exam: Initial Vitals Temp Pulse Resp BP Pulse Ox 100.1 F 107 18 120/80 100 09/06/19 12:09 09/06/19 12:09 09/06/19 12:09 09/06/19 12:09 09/06/19 12:09 Vital Signs Reviewed: Yes Procedures - Sedation Patient Received Moderate/Deep Sedation with Procedure: No Diagnostics - Vital Signs Vital Signs Temp Pulse Resp BP Pulse Ox 09/06/19 12:09 100.1 F 107 18 120/80 100 - Laboratory Result Diagrams: 09/06/19 12:36 09/06/19 12:36 Lab Statement: Any lab studies that have been ordered have been reviewed, and results considered in the medical decision making process. - Radiology Chest X-ray Radiology Interpretation Completed By: Radiologist Summary of Radiographic Findings: Chest X-ray IMPRESSION: NO EVIDENCE FOR ACTIVE CARDIOPULMONARY DISEASE. Reviewed by Dr. Hein. - CT Abdomen/Pelvis CT CT Interpretation Completed By: Radiologist Summary of CT Findings: Abdomen/Pelvis CT IMPRESSION: 1. The appendix is absent consistent with appendectomy. No inflammatory change in the right lower quadrant. 2. No other acute CT pathology. Reviewed by Dr. Hein. - Ultrasound Transvaginal US Ultrasound Interpretation Completed By: Radiologist Summary of Ultrasound Findings: Transvaginal US IMPRESSION: Prominent periendometrial cysts are noted. No definite evidence of intrauterine is noted. No adnexal masses are noted. Reviewed by Dr. Hein. Re-Evaluation - Re-Evaluation First Eval Re-Evaluation Time: 17:03 Change: Unchanged Comment: At 17:03, patient notes having a headache for 2 days. She denies neck pain. Second Eval Re-Evaluation Time: 19:07 Change: Improved Comment: At 19:07, patient is feeling better and her headache has resolved. Third Eval Re-Evaluation Time: 19:30 Change: Unchanged Comment: At 19:30, I discussed the risks and benefits of a lumbar puncture. Patient declined to have a lumbar puncture performed. Abdominal Pain Fem Course/Dx - Course Course Of Treatment: 24 y/o female with recent positive test p/w RLQ abdominal pain and myalgias. - PE: Takata, mild right lower quadrant TENDERNESS. Pelvic with mild discharged no cervical motion tenderness. Left several versus significantly elevated white count to 29. Chest x-ray without obvious infection, flu negative. Differential includes PID, tubo-ovarian abscess , septic miscarriage, less likely appendicitis given history of appendectomy but could have stump appendicitis, pyelonephritis. US neg, UA neg for infection. Has headache but no neck pain, +myalgias. Lower suspicion meningitis. - CT ab/pelvis obtained which shows no acute process. - d/w patient LP to r/o meningitis, she declines at this time. Advised that the longer she waits, the lower the sensitivity given that she would be on abx. - Diagnoses Provider Diagnoses: Fever, RLQ abdominal pain, Headache - Provider Notifications Discussed Care Of Patient With: Chelsi Kelly - At 14:01, Dr. Kelly reviewed the patients case and recommends the patient follow up after the remaining tests come back. She does not believe the patient has an ectopic . At 19:16, Dr. Lowell Marie reviewed the patients case and agrees to admit the patient to [facility] with a diagnosis of fever, RLQ abdominal pain, and headache. If the patient is willing, a lumbar puncture can be performed. Time Discussed With Above Provider: 14:01 Instructed by Provider To: Admit As Inpatient Discharge ED - Sign-Out/Discharge Documenting (check all that apply): Patient Departure - Admit - Discharge Plan Condition: Stable Disposition: ADMITTED TO [facility] Referrals: Pasha Yu MD [Primary Care Provider] - - Billing Disposition and Condition Condition: STABLE Disposition: Admitted to [facility] - Attestation Statements Document Initiated by Scribe: Yes Documenting Scribe: Olga Lidia Lindsey Provider For Whom Karely is Documenting (Include Credential): Michelle Hein MD Scribe Attestation: Olga Lidia Aranda scribed for Michelle Hein MD on 09/06/19 at 2008. Scribe Documentation Reviewed: Yes Provider Attestation: The documentation as recorded by the Olga Lidia ford accurately reflects the service I personally performed and the decisions made by me, Michelle Hein MD Status of Scribe Document: Viewed
[2019-09-06 12:57] LABS: Hematocrit 37 % (35-47); Hemoglobin 12.2 g/dL (12.0-16.0); Mean Corpuscular HGB Conc 33 g/dL (31-36); Mean Corpuscular Hemoglobin 26 pg (27-31); Mean Corpuscular Volume 79 fL (80-97); Platelet Count 318 10^3/uL (150-450); Red Blood Count 4.68 10^6 /uL (3.70-4.87); Red Cell Distribution Width 13 % (10-15)
[2019-09-06] MEDS ORDERED: NS 0.9% 1000 ML** 1,000 ML IV ONE ×3 (13:06→18:03)
[2019-09-06] MEDS ORDERED: Acetaminophen TAB* 325 MG PO ONE ×2 (13:07→16:24)
[2019-09-06] MEDS ORDERED: Piperacillin/Tazobac ADVAN(*) 3.375 GM in NS 0.9% 100 ML* 100 ML IVPB ONE (13:17)
[2019-09-06 13:18] LABS: Albumin 4.3 g/dL (3.2-5.2); Albumin/Globulin Ratio 1.1 (1-3); BUN/Creatinine Ratio 15.1 (8-20); Calcium 9.5 mg/dL (8.6-10.3); EGFR African American 88.2 (>60); EGFR Non-African American 72.9 (>60); Globulin 3.9 g/dL (2-4); Potassium 4.1 mmol/L (3.5-5.0); Total Bilirubin 0.5 mg/dL (0.2-1.0); Total Protein 8.2 g/dL (6.4-8.9)
[2019-09-06 13:22] LABS: ABS Basophils 0.1 10^3/ul (0-0.2); ABS Lymphocytes 0.9 10^3/ul (1.0-4.8); Lymphocyte % 3.2 %; Nucleated Red Blood Cells % 0.1
[2019-09-06] MEDS ORDERED: Piperacillin/Tazobac (*) 3.375 GM BAG ONE (13:22)
[2019-09-06 13:25] LABS: HCG Pregnancy 23.32 mIU/mL
[2019-09-06] MEDS ORDERED: Vancomycin(*) 1,000 MG in NS 0.9% 250 ML* 250 ML IV ONE (14:00)
[2019-09-06] MEDS ORDERED: Vancomycin(*) 1,000 MG VIAL IVPB SCH (14:00)
[2019-09-06] MEDS ORDERED: Ketorolac INJ* 30 MG/ML 1 ML VIAL IV ONE (14:07)
[2019-09-06] MEDS ORDERED: Ondansetron INJ* 2 MG/ML VIAL IV ONE (14:07)
[2019-09-06] MEDS ORDERED: Ondansetron INJ* 2 MG/ML VIAL ONE (14:09)
[2019-09-06] MEDS ORDERED: Vancomycin(*) 1,250 MG IV x ONCE IVPB ONE ×2 (15:00)
[2019-09-06] MEDS ORDERED: Iohexol 300* (CONTRAST) 10 ML SDV IV ONE (16:20)
[2019-09-06 16:22] LABS: Influenza A Molecular NEGATIVE (Negative); Influenza B Molecular NEGATIVE (Negative)
[2019-09-06] MEDS ORDERED: Morphine 4 MG/ML VIAL (1 ml) 4 MG/ML VIAL IV ONE (16:58)
[2019-09-06] MEDS ORDERED: Ibuprofen TAB* 600 MG PO ONE (17:08)
[2019-09-06 17:40] LABS: Urine Appearance Cloudy; Urine Bilirubin Negative (Negative); Urine Blood Negative (Negative); Urine Color Yellow; Urine Glucose Negative (Negative); Urine Ketones Trace (Negative); Urine Nitrite Negative (Negative); Urine Protein 2+(100 mg/dL) (Negative); Urine Specific Gravity 1.033 (1.010-1.030); Urine Urobilinogen Negative (Negative)
[2019-09-06 17:44] LABS: Urine Bacteria Absent (Absent); Urine Red Blood Cell Trace(0-2/hpf) (Absent); Urine Squamous Epithelial Cell Present (Absent); Urine White Blood Cell Trace(0-5/hpf) (Absent)
[2019-09-06] MEDS ORDERED: Lidocaine 1% INJ* 10 MG/ML 30 ML SDV INJ ONE (19:16)
[2019-09-06 19:26] LABS: INR 1.3 (0.82-1.09)
[2019-09-06] MEDS ORDERED: Morphine INJ* 2 MG/ML 1 ML SYRINGE (TWO MG - NEW SYRINGE VERSION) IV PRN (20:50)
[2019-09-06] MEDS ORDERED: Albuterol HFA INHALER* 8 gm MDI INH PRN (20:54)
[2019-09-06] MEDS ORDERED: Vancomycin per Pharmacy* NOTE FOLLOW UP SCH (21:00)
[2019-09-06] MEDS ORDERED: Zosyn per Pharmacy* NOTE FOLLOW UP SCH (21:00)
[2019-09-06] MEDS ORDERED: ZOSYN 3.375 GM x ONE DOSE over 30 miuntes IVPB ×2 (22:00)
--- NOTE | 2019-09-06 23:06 | HP ---
CC: Dr. Pasha Yu * HISTORY AND PHYSICAL: DATE OF ADMISSION: 09/06/19 PROVIDER: Greg Koroma NP ATTENDING PHYSICIAN: Dr. Lowell Marie * (dictated by Greg Koroma NP). PRIMARY CARE PROVIDER: Dr. Pasha Yu. CHIEF COMPLAINT: Right suprapubic abdominal pain and fever. HISTORY OF PRESENT ILLNESS: Ms. Jiang is a 24-year-old female who presents to the ER with complaints of right suprapubic abdominal pain that she describes as sharp and cramping. She also has accompanying symptoms of fever and chills, nausea, vomiting, fatigue, body aches, cough, and developed headache while she is here in the ER. She has a T-max of 103. Ms. Jiang reports that her last menstrual period was likely sometime in May; she is unsure of the last date. She states she was and reports she had a miscarriage about 4 days ago. She was seen by Dr. Eaton in his office. In the office, she states that there was concern for fluid on the uterus, and he sent her to the hospital for further examination. Here in the ER, she had multiple tests performed including a transvaginal ultrasound, which showed prominent pete-endometrial cysts, but no definite evidence of intrauterine . No adnexal masses are noted. She had a chest x-ray, which showed no evidence for active cardiopulmonary disease. She had a CT of the abdomen and pelvis that showed that the appendix was absent consistent with appendectomy. No inflammatory change in the right lower quadrant. No other acute CT pathology. Her labs are concerning for white blood cell count of 29,000 and initial lactic acidosis of 2.1 that has since resolved with fluids. Given her fever presentation and these findings, hospital medicine was consulted for admission. PAST MEDICAL HISTORY: Includes asthma, anemia, depression. PAST GYNECOLOGICAL HISTORY: She reports having 4 pregnancies and has 1 living child. PAST SURGICAL HISTORY: Includes an appendectomy in 2008 and history of medical in 2013. HOME MEDICATIONS: 1. Cholecalciferol 4000 units daily. 2. Ibuprofen 600 mg q.6 hours p.r.n. 3. Fluoxetine 40 mg q.a.m. 4. Albuterol 2 puffs inhaled q.6 hours p.r.n. ALLERGIES: No known allergies. FAMILY HISTORY: She denies any known medical history in her parents or other family members. SOCIAL HISTORY: She denies tobacco use or illicit drug use. She reports occasional alcohol use. 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 She lists her mother, Kristian Jiang, as her surrogate decision maker in the event of emergency. REVIEW OF SYSTEMS: A 14-point review of systems was completed. All pertinent positives and negatives as per HPI. All those not mentioned are negative. PHYSICAL EXAMINATION GENERAL: This is a young female seen lying in the bed, in no acute distress. VITAL SIGNS: Temperature 98.5, heart rate 114, respiratory rate 18, blood pressure 95/69, O2 saturation 99% on room air. HEENT: Head is atraumatic, normocephalic. Face is symmetrical. Pupils are equal, round, and reactive to light and accommodation. Extraocular movements are intact. Sclerae anicteric. Oral mucosa is moist. NECK: Supple. No lymphadenopathy appreciated. There is no nuchal rigidity. LUNGS: Clear to auscultation bilaterally. CARDIAC: Regular rate and rhythm. Rate is tachycardiac. Normal S1, S2 heart sounds. No murmur appreciated. Radial pulses are 2+ bilaterally and symmetrical. Distal pulses are intact to popliteal. Posterior tibialis and dorsalis pedis sites 2+ and symmetric bilaterally. No peripheral edema noted. ABDOMEN: Soft, nondistended. There is right lower quadrant tenderness. There is no CVA tenderness. MUSCULOSKELETAL: Without cyanosis or clubbing. There was full active range of motion in all 4 extremities. She is observed pushing herself up and ambulating to the bathroom and back to her bed with no difficulty. NEUROLOGIC: Alert and oriented x3. No focal deficits noted. Speech is clear. Strength is 5/5 in upper and lower extremities. SKIN: Hot and dry. Grossly intact. DIAGNOSTIC STUDIES/LAB DATA: CBC: WBC 29,000, hemoglobin 12.2, hematocrit 37 , platelet count 318. INR is 1.3. CMP: Sodium 136, potassium 4.1, chloride 103, carbon dioxide 26, BUN 14, creatinine 0.93, glucose 90, lactic acid 2.1, calcium 9.5. Total bilirubin 3.5, AST 14, ALT 10, alk phos 81. Albumin 4.3. Beta-hCG 23.32. Negative mono screen. Influenza A and B noted. Imaging: As per above. EKG: Showed sinus tachycardia, rate 115. There was some mildly flattened T waves noted in V1, V2, V3. Old medical records were reviewed. ASSESSMENT AND PLAN: This is a 24-year-old female who presents to the ER today with concern for fever, right lower quadrant abdominal pain in the presence of recent miscarriage. She will be admitted as an observation. Plan is as follows : 1. Fever: Source is unclear at this point in time. Ms. Jiang has declined lumbar puncture while in the ER but would be willing to reconsider this if symptoms persisted, and she fails to improve. She has no nuchal rigidity, and meningitis seems less likely given her presentation and complaints. Some of her serologies are still pending following her pelvic exam, which was performed in the ER. Per the ER notes and physician, there was no cervical motion tenderness. The patient does not endorse pain in the vaginal or pelvic area at this point in time. However, pelvic inflammatory disease is still in the differential, pending the results of her other serologies. Urinalysis shows no bacteria, cultures are pending. Also OB has reviewed the patient's imaging and does not feel that this represents an ectopic . In any event, we will continue to cover her with broad- spectrum antibiotics, which will include Zosyn and vancomycin. Repeat her blood cultures in the morning. Support her with IV fluids and continue to try to isolate the cause of her fevers and pain. 2. Right lower quadrant abdominal pain: Again this is also unclear and may be related to recent miscarriage. There is also a question of cyst as per above. This may also represent other pathologies including abscess, PID. Continue with antibiotics as per above. 3. Sepsis: The patient meets for sepsis criteria by starting with a T-max of 103, tachycardia, tachypnea, and white blood cell count of 29,000. The patient also shows lactic acidosis. Again source is unknown. 4. Tachycardia. Baseline EKG showed some T wave flattening. She denies chest pain. Suspect tachycardia is related to fever. We will monitor her on telemetry. 5. Recent miscarriage: Continue to trend beta-hCG. Provide supportive care. 6. Microcytosis: H and H is on the lower end of normal. She does notably have some microcytosis likely secondary to iron-deficiency. She does report that she was previously on iron supplementation but stopped this due to constipation and other side effects. She tries to eat iron rich foods. Follow up with her primary care provider. 7. Depression: Continue home fluoxetine. 8. Asthma: Stable and not in acute exacerbation. Continue p.r.n. albuterol. 9. FEN: She is ordered regular diet and lactated Ringer's fluid. 10. DVT prophylaxis: She is ordered SCDs and encouraged to ambulate. I will hold on chemoprophylaxis, in the event she may need a lumbar puncture. I do not want to delay this diagnostic testing. Her score is 2 on a DVT Risk Assessment Scale, but she is able to ambulate and will be encouraged to do so and to utilize SCDs. 11. Code status: She is a full code. TIME SPENT: Approximately 60 minutes was spent on this admission with greater than half of the time was spent [id number] with the patient obtaining history and physical, performing physical examination, and reviewing the plan of care. Plan of care was also reviewed with my attending, Dr. Marie, who is in agreement. GREG KOROMA NP [id number]/CPS #: [id number] ROSEMARY
[2019-09-06] MEDS ORDERED: Lactated Ringers 1000 ML Bag* 1,000 ML IV SCH (23:45)
[2019-09-06] MEDS ORDERED: NS 0.9% KEEP VEIN OPEN IV ONE (23:45)
[2019-09-06] MEDS ORDERED: NS 0.9% KEEP VEIN OPEN IV SCH (23:45)
[2019-09-07] MEDS: Vancomycin(*) 1,000 MG in NS 0.9% 250 ML* 250 ML IV SCH ×2 (00:13→06:28)
[2019-09-07] MEDS: Acetaminophen TAB* 325 MG PO PRN ×2 (04:09→09:18)
--- NOTE | 2019-09-07 08:56 | PN ---
Subjective Date of Service: 09/07/19 Interval History: Admitted yesterday for fever, with unclear etiology This morning, she reports that she feels slightly better than when she initially arrived to the ED. She does have pain at the right lower quadrant- improving slowly per her, aching pain, this morning states that she is having sore throat, and scratchy throat. prior to coming to the ED she had body aches Family History: Unchanged from Admission Social History: Unchanged from Admission Past Medical History: Unchanged from Admission Objective Active Medications: Acetaminophen (Tylenol Tab*) 650 mg PO Q4H PRN PRN Reason: MILD PAIN or TEMP > 100.4 Last Admin: 09/07/19 04:09 Dose: 650 mg Albuterol (Ventolin Hfa Inhaler*) 2 puff INH Q6H PRN PRN Reason: WHEEZING Fluoxetine HCl (Prozac Cap*) 40 mg PO QAM [facility] Lactated Ringer's (Lactated Ringers 1000 Ml Bag*) 1,000 mls @ 100 mls/hr IV PER RATE [facility] Vancomycin HCl 1,000 mg/ (Sodium Chloride) 250 mls @ 166.667 mls/hr IV Q8H [facility] Last Admin: 09/07/19 06:28 Dose: 166.667 mls/hr Piperacillin Sod/Tazobactam (Sod 3.375 gm/ Sodium Chloride) 100 mls @ 25 mls/ hr IVPB Q8H [facility] Morphine Sulfate (Morphine Inj (Syringe))*) 2 mg IV Q4H PRN PRN Reason: PAIN - MODERATE Last Admin: 09/07/19 06:55 Dose: 2 mg Ondansetron HCl (Zofran Inj*) 4 mg IV Q4H PRN PRN Reason: NAUSEA/VOMITING Pharmacy Consult (Vancomycin Per Pharmacy*) 1 note FOLLOW UP .VANC PER PHARMACY [facility]; Protocol Pharmacy Consult (Zosyn Per Pharmacy*) 1 note FOLLOW UP .ZOSYN PER PHARMACY [facility] Pharmacy Profile Note (Vancomycin Trough Check) 1 note FOLLOW UP 1400 ONE Stop: 09/07/19 14:01 Vital Signs - 8 hr 09/07/19 09/07/19 09/07/19 03:27 06:55 07:32 Temperature 98.1 F 99.6 F Pulse Rate 94 86 Respiratory 18 16 16 Rate Blood Pressure 111/67 118/69 (mmHg) O2 Sat by Pulse 98 100 Oximetry 09/07/19 08:13 Temperature Pulse Rate Respiratory 16 Rate Blood Pressure (mmHg) O2 Sat by Pulse Oximetry Oxygen Devices in Use Now: None Appearance: Young female, lying in bed, not in distress Eyes: PERRLA Ears/Nose/Mouth/Throat: Mucous Membranes Moist, - - Tonsils are enlarged, no cervical LAD, mildly erythamatous oropharynx, no tonsillar exudates Neck: - - Neck is supple, ROM is intact, no nuchal rigidity. Respiratory: Symmetrical Chest Expansion and Respiratory Effort, Clear to Auscultation Cardiovascular: NL Sounds; No Murmurs; No JVD, RRR, No Edema Abdominal: No Hepatosplenomegaly, - - minimal tenderness at the RLQ, abdomen is soft, normoactive bowel sounds. Skin: No Rash or Ulcers Neurological: Alert and Oriented x 3 Result Diagrams: 09/06/19 12:36 09/06/19 12:36 Assess/Plan/Problems-Billing Assessment: - Patient Problems (1) Fever Current Visit: Yes Status: Acute Code(s): R50.9 - FEVER, UNSPECIFIED SNOMED Code(s): 045800989 Comment: admitted with fever, unclear etiology, work up is thus far negative , recent miscarriage, pelvic u/s benign- has some cysts, case was discussed with BLOWER OPERATOR yesterday as well. blood cultures pending will rule out strep throat- with rapid strep swab continue vancomycin and zosyn could be viral etiology, has declined an LP, but currently reports no neck pain , ROM was intact this morning, with no rigidity. pelvic exam was done by the ED physician, specimen was sent for further workup, reported no cervical motion tenderness. fever with Leukocytosis: repeat CBC for this AM pending- called lab they said they only have one import dispatcher here today and they will get to her. (2) DVT prophylaxis Current Visit: Yes Status: Acute Code(s): Z29.9 - ENCOUNTER FOR PROPHYLACTIC MEASURES, UNSPECIFIED SNOMED Code(s): 082508748 Comment: SCD (3) History of depression Current Visit: Yes Status: Acute Code(s): Z86.59 - PERSONAL HISTORY OF OTHER MENTAL AND BEHAVIORAL DISORDERS SNOMED Code(s): 481635132 Comment: continue fluoxetine
[2019-09-07] MEDS: FLUoxetine CAP* 20 MG PO SCH (09:19)
[2019-09-07] MEDS: ZOSYN 3.375 GM Q8H per EXTENDED INFUSION IVPB SCH ×4 (09:20→16:12)
[2019-09-07 09:53] LABS: ABS Eosinophils 0.1 10^3/ul (0-0.6); ABS Lymphocytes 1.4 10^3/ul (1.0-4.8); ABS Neutrophils 18.3 10^3/ul (1.5-7.7); Eosinophil % 0.6 %; Hematocrit 31 % (35-47); Hemoglobin 10.5 g/dL (12.0-16.0); Lymphocyte % 6.5 %; Mean Corpuscular HGB Conc 34 g/dL (31-36); Mean Corpuscular Hemoglobin 26 pg (27-31); Mean Corpuscular Volume 78 fL (80-97); Mean Platelet Volume 8.3 fL (7.4-10.4); Platelet Count 216 10^3/uL (150-450); Red Cell Distribution Width 14 % (10-15); White Blood Count 20.7 10^3/uL (3.5-10.8)
[2019-09-07 10:02] LABS: Rapid Strep Molecular POSITIVE (Negative)
[2019-09-07 10:19] LABS: HCG Pregnancy 17.18 mIU/mL
[2019-09-07 10:29] LABS: BUN/Creatinine Ratio 9.5 (8-20); Calcium 8.1 mg/dL (8.6-10.3); EGFR African American 114.8 (>60); EGFR Non-African American 94.9 (>60); Potassium 3.9 mmol/L (3.5-5.0)
[2019-09-07] MEDS ORDERED: Ibuprofen TAB* 400 MG PO ONE (13:47)
[2019-09-07] MEDS ORDERED: Vancomycin Trough Check NOTE FOLLOW UP ONE (14:00)
[2019-09-07] MEDS ORDERED: Butalb/Acetamin/Caff TAB* 1 TAB PO ONE (16:59)
[2019-09-07] MEDS: Lactobacillus Acidophilus* 1 TAB PO SCH (21:07)
[2019-09-07] MEDS: metroNIDAZOLE VAGINAL 0.75%* 70 GM VAGINAL SCH (21:07)
[2019-09-08] MEDS: ZOSYN 3.375 GM Q8H per EXTENDED INFUSION IVPB SCH ×6 (00:12→16:25)
[2019-09-08] MEDS: Acetaminophen TAB* 325 MG PO PRN ×3 (03:29→23:07)
[2019-09-08 05:12] LABS: ABS Eosinophils 0.3 10^3/ul (0-0.6); ABS Lymphocytes 1.5 10^3/ul (1.0-4.8); ABS Monocytes 0.7 10^3/ul (0-0.8); ABS Neutrophils 8.3 10^3/ul (1.5-7.7); Eosinophil % 2.5 %; Hematocrit 29 % (35-47); Hemoglobin 9.7 g/dL (12.0-16.0); Mean Corpuscular HGB Conc 34 g/dL (31-36); Mean Corpuscular Hemoglobin 27 pg (27-31); Mean Corpuscular Volume 79 fL (80-97); Mean Platelet Volume 7.7 fL (7.4-10.4); Platelet Count 238 10^3/uL (150-450); Red Blood Count 3.64 10^6 /uL (3.70-4.87); Red Cell Distribution Width 14 % (10-15); White Blood Count 10.8 10^3/uL (3.5-10.8)
[2019-09-08 05:30] LABS: BUN/Creatinine Ratio 11.3 (8-20); Calcium 8.3 mg/dL (8.6-10.3); EGFR African American 104.9 (>60); EGFR Non-African American 86.7 (>60); Potassium 3.6 mmol/L (3.5-5.0)
[2019-09-08] MEDS: Lactobacillus Acidophilus* 1 TAB PO SCH ×2 (08:53→20:59)
[2019-09-08] MEDS: FLUoxetine CAP* 20 MG PO SCH (08:53)
[2019-09-08] MEDS: Ondansetron INJ* 2 MG/ML VIAL IV PRN (10:21)
[2019-09-08] MEDS: NS 0.9% 1000 ML** 1,000 ML IV SCH (16:52)
--- NOTE | 2019-09-08 17:00 | PN ---
Subjective Date of Service: 09/08/19 Interval History: Reports feeling better today.Leukocytosis improving Very nauseous,vomitting and has diarrhea today Family History: Unchanged from Admission Social History: Unchanged from Admission Past Medical History: Unchanged from Admission Objective Active Medications: Acetaminophen (Tylenol Tab*) 650 mg PO Q4H PRN PRN Reason: MILD PAIN or TEMP > 100.4 Last Admin: 09/08/19 12:41 Dose: 650 mg Albuterol (Ventolin Hfa Inhaler*) 2 puff INH Q6H PRN PRN Reason: WHEEZING Fluoxetine HCl (Prozac Cap*) 40 mg PO QAM [facility] Last Admin: 09/08/19 08:53 Dose: 40 mg Piperacillin Sod/Tazobactam (Sod 3.375 gm/ Sodium Chloride) 100 mls @ 25 mls/ hr IVPB Q8H [facility] Last Admin: 09/08/19 16:25 Dose: 25 mls/hr Sodium Chloride (Ns 0.9% 1000 Ml) 1,000 mls @ 100 mls/hr IV PER RATE [facility] Last Admin: 09/08/19 16:52 Dose: 100 mls/hr Lactobacillus Rhamnosus (Lactobacillus Acidophilus*) 1 tab PO BID [facility] Last Admin: 09/08/19 08:53 Dose: 1 tab Metronidazole (Metronidazole Vaginal 0.75%*) 1 applic VAGINAL BEDTIME [facility] Last Admin: 09/07/19 21:07 Dose: 1 vag.supp Morphine Sulfate (Morphine Inj (Syringe))*) 2 mg IV Q4H PRN PRN Reason: PAIN - MODERATE Last Admin: 09/07/19 06:55 Dose: 2 mg Ondansetron HCl (Zofran Inj*) 4 mg IV Q4H PRN PRN Reason: NAUSEA/VOMITING Last Admin: 09/08/19 10:21 Dose: 4 mg Pharmacy Consult (Zosyn Per Pharmacy*) 1 note FOLLOW UP .ZOSYN PER PHARMACY [facility] Vital Signs - 8 hr 09/08/19 09/08/19 11:55 15:14 Temperature 99.1 F 98.2 F Pulse Rate 72 72 Respiratory 16 16 Rate Blood Pressure 116/71 119/69 (mmHg) O2 Sat by Pulse 99 100 Oximetry Oxygen Devices in Use Now: None Eyes: No Scleral Icterus Ears/Nose/Mouth/Throat: NL Teeth, Lips, Gums Neck: NL Appearance and Movements; NL JVP Respiratory: Symmetrical Chest Expansion and Respiratory Effort Cardiovascular: NL Sounds; No Murmurs; No JVD Abdominal: NL Sounds; No Tenderness; No Distention Extremities: No Edema Skin: No Rash or Ulcers Neurological: Alert and Oriented x 3 Result Diagrams: 09/08/19 04:49 09/08/19 04:49 Microbiology and Other Data: Microbiology 09/06/19 13:55 Aerobic Blood Culture - Preliminary Blood Venous No Growth Day 2 Anaerobic Blood Culture - Preliminary No Growth Day 2 09/06/19 13:29 Aerobic Blood Culture - Preliminary Blood Venous No Growth Day 2 Anaerobic Blood Culture - Preliminary No Growth Day 2 09/06/19 13:22 Aerobic Blood Culture - Preliminary Blood Venous No Growth Day 2 Anaerobic Blood Culture - Preliminary No Growth Day 2 09/07/19 12:25 Aerobic Blood Culture - Preliminary Blood Venous No Growth Day 1 Anaerobic Blood Culture - Preliminary No Growth Day 1 09/07/19 12:25 Aerobic Blood Culture - Preliminary Blood Venous No Growth Day 1 Anaerobic Blood Culture - Preliminary No Growth Day 1 09/06/19 17:02 Urine Culture - Final Urine No Growth (<1,000 CFU/mL) 09/06/19 15:26 Gardnerella DNA Probe - Final Vaginal Negative [place] Positive Gardnerella Assess/Plan/Problems-Billing Assessment: - Patient Problems (1) Sepsis Current Visit: Yes Status: Acute Comment: WBC> [id number] in the setting of recent miscarraige strep throat blood culture pending improving with iv zosyn continue and transition to po augmentin at time of discharge continue ivf severe nausea (2) Strep pharyngitis Current Visit: Yes Status: Acute Code(s): J02.0 - STREPTOCOCCAL PHARYNGITIS SNOMED Code(s): 26505031 Comment: zosyn for now with severe presentation as above Will d/c on po augmentin when stable (3) Gardnerella vaginitis Current Visit: Yes Status: Acute Code(s): N76.0 - ACUTE VAGINITIS; B96.89 - OTH BACTERIAL AGENTS THE CAUSE OF DISEASES [facility]SD [facility] SNOMED Code(s): 359073746 Comment: metronidazole gel (4) Miscarriage Current Visit: Yes Status: Acute Code(s): O03.9 - COMPLETE OR UNSP SPONTANEOUS WITHOUT COMPLICATION SNOMED Code(s): 51437237 Comment: CT and ultrasound reviewed and case was d/w ob/gyn no residual content noted miscarraige within the last week multiple miscarraiges will check tyra for for antiphospholipid syndrome with anticardiolipin and antiphospholipid ab Will also need to repeat UA with 2+ protein in 2 weeks when stable Strep can cause GN also Will repeat UA tomorrow And will need BMP,UA as outpt
[2019-09-08] MEDS: Potassium Chlor TAB* 20 MEQ TAB.ER PO SCH (17:16)
[2019-09-08 20:19] LABS: Urine Appearance Clear; Urine Bilirubin Negative (Negative); Urine Blood Negative (Negative); Urine Color Straw; Urine Glucose Negative (Negative); Urine Ketones Negative (Negative); Urine Nitrite Negative (Negative); Urine Protein Negative (Negative); Urine Specific Gravity 1.015 (1.010-1.030); Urine Urobilinogen Negative (Negative)
[2019-09-08 20:31] LABS: Urine Creatinine Concentration 66.48 mg/dL
[2019-09-08] MEDS: metroNIDAZOLE VAGINAL 0.75%* 70 GM VAGINAL SCH (20:59)
[2019-09-09] MEDS: ZOSYN 3.375 GM Q8H per EXTENDED INFUSION IVPB SCH ×4 (01:05→07:48)
[2019-09-09] MEDS: NS 0.9% 1000 ML** 1,000 ML IV SCH (04:55)
[2019-09-09 05:19] LABS: ABS Eosinophils 0.2 10^3/ul (0-0.6); ABS Lymphocytes 2.1 10^3/ul (1.0-4.8); ABS Monocytes 0.6 10^3/ul (0-0.8); ABS Neutrophils 4.1 10^3/ul (1.5-7.7); Eosinophil % 3.4 %; Hematocrit 30 % (35-47); Hemoglobin 10.6 g/dL (12.0-16.0); Lymphocyte % 29.4 %; Mean Corpuscular HGB Conc 35 g/dL (31-36); Mean Corpuscular Hemoglobin 27 pg (27-31); Mean Corpuscular Volume 78 fL (80-97); Mean Platelet Volume 7.7 fL (7.4-10.4); Nucleated Red Blood Cells % 0.2; Platelet Count 308 10^3/uL (150-450); Red Blood Count 3.91 10^6 /uL (3.70-4.87); Red Cell Distribution Width 13 % (10-15)
[2019-09-09 05:38] LABS: BUN/Creatinine Ratio 12.8 (8-20); Calcium 8.5 mg/dL (8.6-10.3); EGFR African American 96.5 (>60); EGFR Non-African American 79.8 (>60); Potassium 3.8 mmol/L (3.5-5.0)
[2019-09-09 07:25] LABS: C Reactive Protein 97.15 mg/L (<8.01)
[2019-09-09] MEDS: FLUoxetine CAP* 20 MG PO SCH (07:46)
[2019-09-09] MEDS: Potassium Chlor TAB* 20 MEQ TAB.ER PO SCH (07:46)
[2019-09-09] MEDS: Lactobacillus Acidophilus* 1 TAB PO SCH (07:46)
[2019-09-09] MEDS: Acetaminophen TAB* 325 MG PO PRN (07:51)
[2019-09-09 11:34] VITALS: BP 130/78
[2019-09-09 13:21] LABS: Chlamydia trachomatis NAA Negative (Negative); Neisseria gonorrhoeae (GC) NAA Negative (Negative)
[2019-09-09] MEDS: Ondansetron INJ* 2 MG/ML VIAL IV PRN (13:43)
--- NOTE | 2019-09-09 21:59 | DS ---
DISCHARGE SUMMARY: DATE OF ADMISSION: 09/06/19 DATE OF DISCHARGE: 09/09/19 PRINCIPAL DIAGNOSES: 1. Sepsis. 2. Strep pharyngitis. 3. Gardnerella vaginitis. 4. Recent miscarriage. HOSPITAL COURSE: 1. A 24-year-old female with a history of multiple prior miscarriages came into the hospital with complaints of severe right suprapubic abdominal pain with cramping, had fever, chills, nausea, body aches, had a fever of 103. The patient thought that she was and thinks she may have had a miscarriage 4 days ago, was seen by Dr. Eaton in his office. In the ER, the patient had a transvaginal ultrasound which showed prominent pete-endometrial cyst, but no definitive evidence of intrauterine , no adnexal masses were noted. Had a chest x-ray which did not show any evidence of cardiopulmonary disease. Had a CT of the abdomen and pelvis which showed that the appendix was absent consistent with appendectomy, no inflammatory changes were noted in the right lower quadrant. The patient was noted to have a white count of 29,000, a lactic acid of 2.1 with high fevers and septic presentation. The patient was admitted to the hospitalist service, was hydrated, and was started on Zosyn. The patient did not have any meningeal signs. Case was discussed with the patient's OB from the ER and they did not feel like that represented ectopic . The patient was started on Zosyn with significant improvement. The patient's white count back to 7 and normal range from 29. The patient's fevers have subsided including her symptoms of nausea, vomiting, body pain that she had. Of note, the patient's strep test for strep A was noted to be positive. The patient also was noted to be flu negative, chlamydia and gonorrhea negative , T. vaginalis negative. The patient was noted to have Gardnerella vaginitis. The patient was started on metronidazole cream for this as well with improvement. Even though the patient's strep was noted to be negative, the patient's picture of her being so sick is not completely explained by the strep. The patient also had a recent miscarriage which could have contributed to her septic picture with SIRS. Either way, the patient responded very well to antibiotics and at the time of discharge has had resolution of her symptoms and improvement in her infection markers and the patient is eager to go home. The patient will be discharged on Augmentin for 5 more days and the patient to follow up with her primary care doctor in a week. The patient also to follow up with her OB in a week for further evaluation. 2. As the patient has had multiple first semester miscarriages, the patient was also checked for antiphospholipid syndrome and the patient's cardiolipin antibody and phospholipid antibody and DELANEY, which were ordered are still pending. The patient to follow up results of this with her primary care doctor. Lupus anticoagulant was ordered as well and this is pending. The patient's labs were also indicative of UA with 2+ protein on 09/06/19. As strep can cause GN/glomerulonephritis as well, the urine was repeated. On repeat urine on 09/08/19, the patient was not noted to have any protein and the patient's urinalysis noted to be clean. Her prior presentation could be in the setting of recent /miscarriage. 3. Overall, the patient's condition noted to be stable at the time of discharge and the patient wishes to go home. VITALS: Temperature 98.6, pulse 65, respiratory rate 17, oxygen saturation 99% on room air, blood pressure 130/78. LABS AT THE TIME OF DISCHARGE: WBC 7, hemoglobin 10.6, hematocrit 30, platelets noted to be 308. Sodium 137, potassium 3.7, chloride 107, CO2 of 24, BUN 11, creatinine 0.86. The patient's blood cultures noted to be negative. Strep noted to be positive and Gardnerella noted to be positive as described above. PHYSICAL EXAMINATION: HEENT: NCAT. Heart: S1 and S2 present. Regular rate and rhythm. Lungs: Clear to auscultation bilaterally. Abdomen: Soft. Extremities: No edema. Neuro: Alert, oriented x3. IMAGIN. Chest x-ray on 09/06/19, no evidence of cardiopulmonary disease. 2. Transvaginal ultrasound on 09/06/19, prominent pete-endometrial cyst noted. No definite evidence of intrauterine . No adnexal mass noted. 3. Abdomen and pelvis CT on 09/06/19, the appendix is absent consistent with appendectomy. No inflammatory changes in the right lower quadrant. No other acute CT pathology. MEDICATION LIST AT THE TIME OF DISCHARGE: 1. Augmentin 875 p.o. b.i.d. for 5 more days. 2. Zofran 4 mg p.o. q.6 hours p.r.n. for nausea, 20 tabs. 3. Metronidazole vaginal application at bedtime for 7 days. 4. Ventolin inhaler as needed. 5. Fluoxetine 40 mg p.o. q.a.m. 6. Vitamin D 400 units p.o. daily. FOLLOWUP: 1. The patient to follow up with her PCP in a week. 2. The patient to follow up with her GETTERER in a week. DISCHARGE DISPOSITION: Home. CONDITION: Stable. TIME SPENT: Total time spent on discharge is equal to 60 minutes. [id number]/CPS #: [id number] [place]SEM[place]
[2019-09-10 14:52] LABS: LAC APTT 27 sec (25 - 37); LAC INR 1.1 (0.9-1.1); Prothrombin Time(LAC) 12.1 sec (9.4 - 12.5)
[2019-09-10 17:37] LABS: Phospholipid Ab IgG < 9.4 GPL; Phospholipid Ab IgM, S < 9.4 MPL
== END 2019-09-09 14:32 | disposition home or self-care (01) | DRG 720 ==
LOC: ED 11:54 → SSU 20:18 → OBSVTOIN 09-08 10:56
PROVIDERS: ADMIT Internal Medicine; ATTEND Internal Medicine
DX: A41.9 Sepsis, unspecified organism (principal); J02.0 Streptococcal pharyngitis; N76.0 Acute vaginitis; J45.909 Unspecified asthma, uncomplicated; D64.9 Anemia, unspecified; F32.9 Major depressive disorder, single episode, unspecified; R11.2 Nausea with vomiting, unspecified; R19.7 Diarrhea, unspecified; B96.89 Other specified bacterial agents as the cause of diseases classified elsewhere; Z79.899 Other long term (current) drug therapy
CPT/HCPCS: 36415; 71046; 74177; 76830; 80048; 80053; 80202; 81003; 81015; 82570; 83605; 84156; 84702; 85025; 85610; 85613; 85730; 86038; 86140; 86147; 86308; 86850; 86900; 86901; 87040; 87086; 87480; 87491; 87510; 87591; 87651; 87661; 93005; 96374; 96375; 99285; A9270-GY; G0378; J1885; J2270; J2405; J2543; J3370; Q9967